=== PATIENT | female | born 1955 | race Caucasian/White ===

== ENCOUNTER 2016-10-14 12:41 | Inpatient (IN) ==
[2016-10-14] MEDS ORDERED: NS 1,000 ML IV ONE (12:52)
--- NOTE | 2016-10-14 13:39 | EKG Report ---
Test Performed on : 10/14/2016 12:56:44 PM Test Reason : weakness/cp Blood Pressure : / mmHG Vent. Rate : 064 BPM Atrial Rate : 064 BPM P-R Int : 138 ms QRS Dur : 070 ms QT Int : 432 ms P-R-T Axes : 007 034 035 degrees QTc Int : 445 ms Normal sinus rhythm. Low voltage QRS Borderline ECG When compared with ECG of 04-OCT-2014 13:18, No significant change was found Unconfirmed Result
--- NOTE | 2016-10-14 13:45 | Diag Imaging Result Doc PS360 ---
EXAM: CHEST-PORTABLE HISTORY: AMS TECHNIQUE: AP portable chest at 1338 COMMENT: The appearance the chest has not changed significantly since 10/04/2014. The heart size and primary vascularity are within normal limits. IMPRESSION: No acute disease. Electronically signed by Jimbo Sky 10/14/2016 1:43 PM
--- NOTE | 2016-10-14 13:52 | Diag Imaging Result Doc PS360 ---
EXAM: HEAD/C-SPINE W/O CONTRAST HISTORY: Fall/AMS TECHNIQUE: CT of the head without contrast; CT of the cervical spine COMMENT: there is extensive encephalomalacia in the posterior portion of the right parietal and adjacent temporal lobes. There is also some apparent encephalomalacia in the posterior cerebellar hemispheres bilaterally. These findings are more extensive than on the previous study of 10/04/2014. There is no evidence of bleed, mass effect, or abnormal extra-axial fluid collection. The visualized paranasal sinuses are clear. There are no acute bony abnormalities. CT of the cervical spine there are degenerative facet changes particularly at the C3-4 level bilaterally. No evidence of fracture or subluxation is present. There is no evidence of prevertebral soft tissue swelling. IMPRESSION: Chronic ischemic changes in the right hemisphere primarily. No evidence of bleed or other acute abnormality. No evidence of acute fracture or subluxation in the cervical spine. Electronically signed by Jimbo Sky 10/14/2016 1:50 PM
--- NOTE | 2016-10-14 13:54 | Diag Imaging Result Doc PS360 ---
EXAM: FACIAL BONES W/O CONTRAST HISTORY: Fall TECHNIQUE: CT of the facial bones at 0.75 mm COMMENT: The paranasal sinuses are clear. There is no evidence of acute bony abnormality. The mandible is intact. There is narrowing of the mandibular temporal joint space on the right. IMPRESSION: No acute bony abnormality. Electronically signed by Jimbo Sky 10/14/2016 1:52 PM
[2016-10-14 14:07] LABS: ALLEN TEST YES; BE 1.3 mmoll (-3.0-3.0); BLOOD TYPE ARTERIAL; DRAW SITE R RADIAL; METHB 0.3 % (0.0-1.5); O2(CT) 15.3 mL/dL (15.0-23.0); PCO2(98.6) 40 mmHg (35-45); PO2(98.6) 62 mmHg (60-100); SAMPLE BLOOD; SAO2 94.6 % (95.0-100.0); THB 11.9 g/dL (11.5-17.4); pH(98.6) 7.42 (7.35-7.45)
[2016-10-14 14:08] LABS: MODALITY ROOM AIR
[2016-10-14 14:11] LABS: BASO% 0.6 % (0.0-0.8); EOS# 0.21 X1000 (0.0-0.7); HEMATOCRIT 39.4 % (37.0-47.0); HEMOGLOBIN 12.8 g/dL (12.0-16.0); IMM GRAN# 0.02 X1000 (0.0-0.04); IMM GRAN% 0.3 % (0.0-0.5); LYMPH# 2.21 X1000 (1.2-3.4); LYMPH% 31.6 % (20.5-51.1); MANUAL DIFF NEEDED? NO; MCH 29.1 PG (27-31); MCHC 32.5 g/dL (33-37); MCV 89.5 FL (81-99); MONO# 0.38 X1000 (0.11-0.59); MONO% 5.4 % (1.7-9.3); MPV 10.7 FL (7.4-10.4); NEUT% 59.1 % (42.2-75.2); PLT 267 X1000 (130-400)
[2016-10-14 14:17] LABS: INR 0.95; PROTIME 9.9 Seconds (9.2-11.7); PTT 21.9 Seconds (22.0-36.0)
[2016-10-14 14:28] LABS: AGAP 13; ALBUMIN 4.1 g/dL (3.5-5.0); ALKALINE PHOSPHATASE 74 U/L (32-104); BUN 10 mg/dL (8-22); CALCIUM 9.1 mg/dL (8.8-10.2); CHLORIDE 104 mmol/L (98-107); CK PROFILE 94 U/L (24-173); COSMO 285; GOT 19 U/L (10-30); GPT 14 U/L (10-36); POTASSIUM 3.3 mmol/L (3.5-5.1); SODIUM 144 mmol/L (136-145); TCO2 27 mmol/L (25-35); TOTAL BILIRUBIN 0.28 mg/dL (0.20-1.00); TOTAL PROTEIN 7.6 g/dL (6.3-8.3)
[2016-10-14] MEDS ORDERED: NORCO-7.5 PO ONE (15:28)
--- NOTE | 2016-10-14 15:28 | PROVIDER DOCUMENTATION ---
This chart was entered by Ainsley Parham Scribe, acting as scribe for Aashish Tucker MD. HPI-Neurological Disorder - General Chief Complaint: Stroke-Like Symptoms Stated Complaint: FALL/NECK,BACK PAIN,RT SIDE NUMB,DIZZY Time Seen by Provider: 10/14/16 12:51 Source: patient, family Allergies/Adverse Reactions: Patient Allergies Allergy/AdvReac Type Severity Reaction Status Date / Time naproxen AdvReac Intermediate Unknown Verified 10/14/16 13:31 fentanyl AdvReac Mild ITCHING Verified 10/14/16 13:31 Home Medications: Home Medication List Medication Instructions Recorded Confirmed Last Taken Type Fluoxetine HCl [Prozac] 20 mg PO DAILY 08/27/14 10/14/16 10/14/16 07:00 History [place]-3 Fatty Acids [Fish Oil] 500 mg PO HS 08/27/14 10/14/16 10/03/14 20:00 History Acetaminophen [Tylenol] 1,000 mg PO Q8H PRN PRN #0 tablet 10/07/14 10/14/16 Unknown Rx Aspirin 325 mg PO DAILY #0 tablet 10/07/14 10/14/16 10/14/16 08:00 Rx Clopidogrel [Plavix] 75 mg PO DAILY #0 tablet 10/07/14 10/14/16 10/14/16 08:00 Rx Amlodipine Besylate [Norvasc] 2.5 mg PO DAILY 10/14/16 10/14/16 10/14/16 08:00 History Diazepam [Valium] 10 mg PO TID 10/14/16 10/14/16 10/14/16 08:00 History Ergocalciferol (Vitamin D2) 50,000 unit PO DAILY 10/14/16 10/14/16 10/14/16 08: 00 History [Drisdol] Furosemide [Furosemide] 20 mg PO DAILY 10/14/16 10/14/16 10/14/16 08:00 History Hydrocodone/APAP 5 mg/325 mg 1 each PO PRN PRN 10/14/16 10/14/16 10/14/16 08:00 History [[place]-5] Lisinopril [Zestril] 10 mg PO DAILY 10/14/16 10/14/16 10/14/16 08:00 History - History of Present Illness-Neuro Nature of Presenting Problem: 61 yo F presents to the ER with complaint of AMS, R sided weakness, slurred speech, and trouble walking. Has a hx of CVA x2 years ago that affected her L side, but per family is having increased R sided weakness. Pt complains of intermittent CP x4 months. Pt was supposed to have stent placement in R neck but they post-poned the surgery until next month. Character of Deficits: reports: impaired speech, decreased ability to walk New weakness or altered sensation location:: reports: RLE Cognitive Baseline: alert, oriented x3 Associated Symptoms: reports: decreased ability to walk or stand, confusion, slurred speech, weakness Review of Systems - Adult - REVIEW OF SYSTEMS - ADULT Constitutional: denies: chills, fever Eyes: reports: no symptoms reported Ears, Nose, Mouth & Throat: reports: no symptoms reported Cardiovascular: reports: chest pain. denies: palpitations Respiratory: denies: cough, shortness of breath Gastrointestinal: denies: abdominal pain, diarrhea, nausea, vomiting Genitourinary: denies: flank pain, hematuria Musculoskeletal: reports: no symptoms reported Integumentary: reports: no symptoms reported Neurological: reports: see HPI, slurred speech Psychiatric: reports: no symptoms reported Endocrine: reports: no symptoms reported Hematologic/Lymphatic: reports: no symptoms reported Allergic/Immunologic: reports: no symptoms reported All Other Systems: Reviewed and Negative Past History - Adult - PAST MEDICAL HISTORY-ADULT Review of Records: reports: Nursing Assessment Review, Medications Reviewed Cardiovascular: reports: HTN, other (aortic bifem) Respiratory: reports: COPD Gastrointestinal: reports: cancer (pancreatic) Genitourinary: reports: cancer (pancreatic) Musculoskeletal: reports: chronic pain, fibromyalgia, intervertebral disc disease Neurological: reports: TIA, other (left facial palsy) Psychiatric: reports: anxiety Endocrine/Immune: reports: Diabetes Other Conditions: reports: denies history - PRIOR SURGERIES/PROCEDURES Surgical/Procedure History: reports: appendectomy, cholecystectomy, hysterectomy , BTL, , other (aortobifem) - IMMUNIZATION STATUS Childhood Immunizations: See Nurse Assessment Flu Vaccine: See Nurse Assessment Physical Exam- Neurological - Physical Exam-Neuro Initial Vital Signs Reviewed: Yes General Appearance: alert, no apparent distress Eye Exam: bilateral eye: normal inspection, PERRL, EOMI HENMT: normocephalic/atraumatic, normal ENT inspection, TMs normal, pharynx normal Head Injury: ecchymosis (L eye - from previous fall). negative: active bleeding Neck: supple, normal inspection Respiratory: no respiratory distress, no accessory muscle use Cardiovascular: normal peripheral pulses, regular rate, rhythm Abdominal Exam: normal bowel sounds, non tender, soft Extremity: normal gait, normal inspection commercial teller Exam: PERRL, abnormal speech (slurred) Neurologic: grossly normal, no motor/sensory deficits Integumentary: normal color, warm/dry Psych/Mental Status: normal mood/affect, normal thought content, normal thought process Progress - PLAN OF CARE/RESULTS Progress/Plan/Lab Results: Vital Signs - 8 hr 10/14/16 12:45 Pulse Rate 65 Respiratory Rate 18 Blood Pressure 151/88 O2 Sat by Pulse Oximetry 98 Laboratory Results - last 24 hr 10/14/16 10/14/16 10/14/16 13:12 13:12 13:12 WBC 6.99 RBC 4.40 Hgb 12.8 Hct 39.4 MCV 89.5 MCH 29.1 MCHC 32.5 L RDW Std Deviation 13.4 Plt Count 267 MPV 10.7 H Immature Gran % (Auto) 0.3 Neut % (Auto) 59.1 Lymph % (Auto) 31.6 [place] % (Auto) 5.4 Eos % (Auto) 3.0 Baso % (Auto) 0.6 Immature Gran # (Auto) 0.02 Neut # (Auto) 4.13 Lymph # (Auto) 2.21 [place] # (Auto) 0.38 Eos # (Auto) 0.21 Baso # (Auto) 0.04 PT INR PTT (Actin FS) Specimen Type Sample Site pH pCO2 pO2 HCO3 Base Excess Oxyhemoglobin ABG O2 Sat (Calculated) ABG O2 Saturation ABG Carboxyhemoglobin ABG Methemoglobin Ney Test A-a O2 Difference Total Hemoglobin Lactate Blood Gas Modality FiO2 % Sodium 144 Potassium 3.3 L Chloride 104 Carbon Dioxide 27 Anion Gap 13 BUN 10 Creatinine 0.8 Estimated GFR/1.73 m2 > 60 BUN/Creatinine Ratio 13 Glucose 86 Calculated Osmolality 285 Calcium 9.1 Total Bilirubin 0.28 AST 19 ALT 14 Alkaline Phosphatase 74 Creatine Kinase 94 Troponin T Xzb-[id number]-Pxbnbwaztix Pept Total Protein 7.6 Albumin 4.1 Globulin 3.5 Albumin/Globulin Ratio 1.2 Plasma/Serum Ethyl Alc 10/14/16 10/14/1610/14/17 13:12 13:12 13:12 WBC RBC Hgb Hct MCV MCH MCHC RDW Std Deviation Plt Count MPV Immature Gran % (Auto) Neut % (Auto) Lymph % (Auto) [place] % (Auto) Eos % (Auto) Baso % (Auto) Immature Gran # (Auto) Neut # (Auto) Lymph # (Auto) [place] # (Auto) Eos # (Auto) Baso # (Auto) PT 9.9 INR 0.95 PTT (Actin FS) 21.9 L Specimen Type Sample Site pH pCO2 pO2 HCO3 Base Excess Oxyhemoglobin ABG O2 Sat (Calculated) ABG O2 Saturation ABG Carboxyhemoglobin ABG Methemoglobin Ney Test A-a O2 Difference Total Hemoglobin Lactate Blood Gas Modality FiO2 % Sodium Potassium Chloride Carbon Dioxide Anion Gap BUN Creatinine Estimated GFR/1.73 m2 BUN/Creatinine Ratio Glucose Calculated Osmolality Calcium Total Bilirubin AST ALT Alkaline Phosphatase Creatine Kinase Troponin T < 0.010 [id number]-[id number]-Vfbbvucsoyu Pept 680 H Total Protein Albumin Globulin Albumin/Globulin Ratio Plasma/Serum Ethyl Alc 10/14/16 13:54 WBC RBC Hgb Hct MCV MCH MCHC RDW Std Deviation Plt Count MPV Immature Gran % (Auto) Neut % (Auto) Lymph % (Auto) [place] % (Auto) Eos % (Auto) Baso % (Auto) Immature Gran # (Auto) Neut # (Auto) Lymph # (Auto) [place] # (Auto) Eos # (Auto) Baso # (Auto) PT INR PTT (Actin FS) Specimen Type ARTERIAL Sample Site R RADIAL pH 7.42 pCO2 40 pO2 62 HCO3 25.8 Base Excess 1.3 Oxyhemoglobin 91.2 L ABG O2 Sat (Calculated) 15.3 ABG O2 Saturation 94.6 L ABG Carboxyhemoglobin 3.30 H ABG Methemoglobin 0.3 Ney Test YES A-a O2 Difference 38.0 Total Hemoglobin 11.9 Lactate 1.00 Blood Gas Modality ROOM AIR FiO2 % 21.0 Sodium Potassium Chloride Carbon Dioxide Anion Gap BUN Creatinine Estimated GFR/1.73 m2 BUN/Creatinine Ratio Glucose Calculated Osmolality Calcium Total Bilirubin AST ALT Alkaline Phosphatase Creatine Kinase Troponin T Cne-U-Jjybyhgbebs Pept Total Protein Albumin Globulin Albumin/Globulin Ratio Plasma/Serum Ethyl Alc Orders Category Date Time Status Cardiac Monitoring DIRECTED Care 10/14/16 12:52 Active Finger Stick Blood Sugar (ED) DIRECTED Care 10/14/16 12:52 Active Saline Loc NOW Care 10/14/16 12:52 Active CHEST-PORTABLE [RAD] Stat Exams 10/14/16 12:52 Completed FACIAL BONES W/O CONTRAST [CT] Stat Exams 10/14/16 13:18 Completed HEAD/C-SPINE W/O CONTRAST [CT] Stat Exams 10/14/16 12:52 Completed ABG [RESP] Routine Lab 10/14/16 13:54 Completed ALCOHOL BLOOD Stat Lab 10/14/16 13:12 Completed BNP [PRO B-NATRIURETIC PEPTIDE] Stat Lab 10/14/16 13:12 Completed CBC WITH ELECTRONIC DIFF [HEME] Stat Lab 10/14/16 13:12 Completed CK PROFILE [SP CHEM] Stat Lab 10/14/16 13:12 Completed COMPREHENSIVE METABOLIC PANEL [CHEM] Stat Lab 10/14/16 13:12 Completed PROTIME WITH INR [COAG] Stat Lab 10/14/16 13:12 Completed PTT [COAG] Stat Lab 10/14/16 13:12 Completed TROPONIN T Stat Lab 10/14/16 13:12 Completed URINALYSIS W/POSS RFLX CULT-1 [URINALYSIS] Stat Lab 10/14/16 12:52 Uncollected URINE DRUG SCREEN Stat Lab 10/14/16 12:52 Uncollected 0.9% Sodium Chloride Inj [Ns] 1,000 ml Med 10/14/16 12:52 Active IV 125 mls/hr Pulse Oximetry Stat Oth 10/14/16 12:52 Active EKG [EKG] Stat Ther 10/14/16 12:49 Draft Result Diagrams: 10/14/16 13:12 10/14/16 13:12 - REASSESSMENT Reassessment #1 Time Reassessed: 15:26 Status: unchanged (Pt is stable and her R side weakness is still the same.) - EKG 1 Time of EKG reading by physician:: 12:56 EKG Read and Signed by:: Aashish Tucker EKG Interpretation (*Must complete 3 of following elements*): Normal (borderline ) Rate: 64 Rhythm: normal sinus rhythm [place]: normal QRS: other (low voltage) AK Interval: normal ST Wave: normal - XRAY 1 XRAY Study: Chest Impression: Normal (no acute disease, per radiologist) - CT/MRI 1 CT Study: Cervical Spine, Head Impression: See EMR Report (chronic ischemic changes int he R hemisphere primarily, no evidence of bleed or other acute abnormality. no evidence of acute fracture or subluxation in the c-spine. per radiologist) 2 CT Study: Facial Bones Impression: Normal (no acute bony abnormality, per radiologist) - CONSULTS/PCP/HOSPITALIST Notification #1 *Consult/PCP/Hospitalist*: Hospitalist Time Discussed: 15:27 Consult Disposition: Will see in ED, Admit Departure - Departure Date of Disposition Decision: 10/14/16 Time of Disposition Decision: 15:27 DIAGNOSIS: CVA (cerebral vascular accident), Recurrent falls Disposition: ADMITTED INPATIENT 09 Certified Medical Emergency: Emergent Condition: Stable Referrals and Follow-Ups: Gin Lloyd CRNP [Primary Care Provider] - - Critical Care Note This patient required my direct & personal management of CC.: No This chart was documented by the indicated scribe, (Ainsley Parham Scribe) and accurately reflects the services I performed and decisions made by me, Aashish Tucker MD, as attested by the provider's signature.
[2016-10-14 15:57] LABS: URINE CULTURE NEEDED? NO; URINE MICRO REVIEW NEEDED? NO; URINE SOURCE CLEAN CATCH
[2016-10-14 16:04] LABS: BILIRUBIN URINE NEGATIVE (NEGATIVE); BLOOD URINE NEGATIVE (NEGATIVE); COLOR YELLOW; GLUCOSE URINE NEGATIVE (NEGATIVE); LEUKOCYTES URINE NEGATIVE (NEGATIVE); NITRITE URINE NEGATIVE (NEGATIVE); PROTEIN URINE NEGATIVE (NEGATIVE); SP GRAVITY URINE 1.009; TURBIDITY URINE CLEAR (CLEAR); UROBILINOGEN URINE NORMAL (NORMAL)
[2016-10-14 16:05] LABS: UR EPITHELIAL CELLS <10 /HPF (<10); URINE BACTERIA 1+ /HPF; URINE RBC <10 /HPF (<10); URINE WBC <10 /HPF (<10)
[2016-10-14 16:37] LABS: UR AMPHETAMINES QUAL NONE DETECTED (NONE DETECT); UR BARBITUATES QUAL NONE DETECTED (NONE DETECT); UR BENZODIAZEPIN QUAL PRESUMPTIVE POSITIVE (NONE DETECT); UR CANNABINOIDS QUAL NONE DETECTED (NONE DETECT); UR COCAINE QUAL NONE DETECTED (NONE DETECT); UR METHADONE QUAL NONE DETECTED (NONE DETECT); UR OPIATES QUAL PRESUMPTIVE POSITIVE (NONE DETECT); UR OXYCODONE QUAL NONE DETECTED (NONE DETECT); UR PCP QUAL NONE DETECTED (NONE DETECT)
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
--- NOTE | 2016-10-14 17:47 | Diag Imaging Result Doc PS360 ---
EXAM: MRA BRAIN W/O CONTRAST HISTORY: CVA TECHNIQUE: 3-D [id number] MRA of the brain COMMENT: No flow is demonstrated in the right internal carotid artery. The anterior cerebral on the right is supplied by the anterior communicating artery. The posterior cerebral and middle cerebral on the right are supplied by the posterior communicating artery and P1 segment from the basilar. The left posterior cerebral appears to obtain most of its flow from the posterior communicating artery on the left. The left P1 segment is either stenotic or occluded. There is less peripheral flow demonstrated in the right middle cerebral system. IMPRESSION: Occlusion of the intracranial portion of the right internal carotid artery. What flow is visible in the middle cerebral on the right comes from the posterior circulation. The A1 segment on the right and the P1 segment on the left are apparently also occluded. Electronically signed by Jimbo Sky 10/14/2016 5:45 PM
--- NOTE | 2016-10-14 17:51 | Diag Imaging Result Doc PS360 ---
EXAM: MRI BRAIN W W/O CONTRAST HISTORY: CVA TECHNIQUE: MRI of the brain with and without gadolinium; T1 sagittal, T1 axial, T2 and flair axial, DWI axial, gradient echo coronal, FSPGR 3-D post gadolinium-enhanced T1 with coronal reconstruction. COMMENT: There is no evidence of restricted diffusion. No evidence of bleed or abnormal extra-axial fluid collection is present. There is extensive encephalomalacia present in the posterior hemisphere on the right including portions of the parietal and temporal lobes. There is also extensive subcortical and periventricular white matter hyperintensity on the T2 and FLAIR images in this portion of the right hemisphere as well distended as to some extent in the periventricular white matter of the left hemisphere. IMPRESSION: Chronic ischemic changes. 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 No evidence of acute intracranial disease. Electronically signed by Jimbo Sky 10/14/2016 5:48 PM
[2016-10-14] MEDS: VALIUM PO SCH (20:51)
[2016-10-14] MEDS: FISH OIL CONCENTRATE PO SCH (20:51)
[2016-10-15] MEDS: VALIUM PO SCH ×3 (04:21→20:32)
[2016-10-15] MEDS: PROZAC PO SCH (08:34)
[2016-10-15] MEDS: LASIX PO SCH (08:35)
[2016-10-15] MEDS: PRINIVIL PO SCH (08:35)
[2016-10-15] MEDS: ASPIRIN PO SCH (08:35)
[2016-10-15] MEDS: PLAVIX PO SCH (08:35)
[2016-10-15] MEDS ORDERED: NORVASC PO SCH (09:00)
[2016-10-15] MEDS: TYLENOL PO PRN (16:51)
--- NOTE | 2016-10-15 17:34 | PROGRESS NOTE ---
DATE: 10/15/2016 SUBJECTIVE: Patient reports feeling fine. Feeling over weak. No fever or chills reported. OBJECTIVE: Vital Signs: Temperature in 97.7, heart rate 73, respiratory rate 18, blood pressure 154/97, O2 saturation 97% on 2 L nasal cannula. General Examination: This is a 61-year-old, chronically ill-looking, and looking definitely older than her age, female lying in bed, in no acute distress. HEENT: Head is normocephalic, atraumatic. Anicteric sclerae and pale conjunctivae. Mucous membranes moist. Neck: Supple. No JVD noted. No carotid bruits. No lymphadenopathy. No thyromegaly. Cardiovascular: S1, S2 heard. No murmurs, gallops, or rubs. Regular rate and rhythm. Respiratory: Clear bilaterally to auscultation. No work of breathing or using accessory muscles. Abdomen: Soft, nontender to palpation. Bowel sounds present. No organomegaly. Extremities: No clubbing, cyanosis, or edema. Peripheral pulses present in both legs. Neurological: There is 4/5 muscle strength on the left side, in the left arm. The same to the left leg. The patient is awake and alert. LABORATORY DATA: There is no labs from today. ASSESSMENT AND PLAN: 1. Recurrent falls. Initially this patient was admitted to the hospital because we suspected a new stroke. MRI of the brain did not show any new stroke but confirmed old stroke, that may explain why this patient keeps having those falls. I think at this time this patient needs to go to a rehab facility. Physical therapy has been consulted and we are awaiting evaluation. Also we have consulted social media editor to be involved in the care of this patient. 2. Hypertension. Blood pressure now is 157, 154. So at this time amlodipine has been started at a dose of 2.5 mg p.o. daily which I think we need to increase it to 5. We will see how this patient does. 3. History of chronic neck pain. We will continue with the same management. 4. General weakness. Physical therapy is on board. cc: Onesimo Kulkarni MD
[2016-10-15] MEDS: FISH OIL CONCENTRATE PO SCH (20:32)
[2016-10-16] MEDS: VALIUM PO SCH ×3 (03:28→20:45)
[2016-10-16] MEDS: TYLENOL PO PRN ×3 (03:30→20:51)
[2016-10-16] MEDS: PROZAC PO SCH (09:26)
[2016-10-16] MEDS: ASPIRIN PO SCH (09:26)
[2016-10-16] MEDS: NORVASC PO SCH (09:26)
[2016-10-16] MEDS: LASIX PO SCH (09:26)
[2016-10-16] MEDS: PRINIVIL PO SCH (09:26)
[2016-10-16] MEDS: PLAVIX PO SCH (09:26)
--- NOTE | 2016-10-16 13:32 | PROGRESS NOTE ---
DATE: 10/16/2016 SUBJECTIVE: Patient reports feeling fine. Breathing better. No fever or chills, but still feeling weak all over. OBJECTIVE: Vital Signs: Temperature 97.3 degrees, heart rate 66, respiratory 20, blood pressure 143/72, O2 saturation 94% on room air. General Appearance: This is looking older than her age, chronically ill-looking, 61-year-old female lying in bed, in no acute distress. HEENT: Head is normocephalic, atraumatic. Anicteric sclerae and pale conjunctivae. Mucous membranes moist. Neck: Supple. No JVD noted. No carotid bruits. No lymphadenopathy. No thyromegaly. Cardiovascular Examination: S1, S2 heard. No murmurs, gallops, or rubs. Regular rate and rhythm. Respiratory Examination: Clear bilaterally to auscultation. No work of breathing or using accessory muscles. Abdomen: Soft, nontender to palpation. Bowel sounds present. No organomegaly. Extremities: No clubbing, cyanosis, or edema. Peripheral pulses present in both legs. Neurological Examination: There is 4/5 muscle strength on the left side of the body. The patient is awake and alert. LABORATORY DATA: No labs from today. ASSESSMENT AND PLAN: 1. Recurrent falls. Patient was admitted to the hospital basically for suspicion for a new stroke. MRI of the brain had ruled out any stroke. At this time, because of these recurrent falls, the patient is going to be sent to rehab facility. Waiting for social work professor to get a bed for her. 2. Hypertension. Patient's amlodipine has been restarted and blood pressure is between 143-128. We are going to continue watching this patient with the same doses of medications. 3. History of chronic neck pain. We will continue with the same management. 4. General weakness. Physical therapy is on board. cc: Onesimo Kulkarni MD
[2016-10-16] MEDS: FISH OIL CONCENTRATE PO SCH (20:44)
[2016-10-17] MEDS: VALIUM PO SCH (04:46)
[2016-10-17] MEDS: PROZAC PO SCH (10:06)
[2016-10-17] MEDS: LASIX PO SCH (10:06)
[2016-10-17] MEDS: NORVASC PO SCH (10:07)
[2016-10-17] MEDS: ASPIRIN PO SCH (10:07)
[2016-10-17] MEDS: PRINIVIL PO SCH (10:07)
[2016-10-17] MEDS: PLAVIX PO SCH (10:07)
[2016-10-17] MEDS: TYLENOL PO PRN (10:11)
[2016-10-17 12:44] VITALS: BP 114/63
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
[2016-10-21] MEDS ORDERED: VITAMIN D PO SCH (09:00)
== END 2016-10-17 13:00 | disposition home health service (06) ==
LOC: ED 12:41 → 3N 18:41 → SUATTDRO 18:41
PROVIDERS: ATTEND Internal Medicine